=== PATIENT | male | born 1960 | race African-American/Black ===

== ENCOUNTER 2017-10-15 05:46 | Day surgery (SDC) | payer BC ==
--- NOTE | 2017-10-14 21:45 | Pre-op HX & Phy Repo 2 SIG ---
DATE OF ADMISSION: 10/15/2017 DATE OF SURGERY: 10/15/2017. PREOPERATIVE DIAGNOSES: 1. Recurrent vitreous hemorrhage, right eye. 2. Severe proliferative retinopathy, left eye with macular edema. BRIEF NOTE: This is a first [facility] admission for this patient. He is a very nice 57-year-old gentleman with a longstanding diabetic retinopathy. He underwent previous vitrectomy surgery and prior injections in the right eye. He had reasonable vision, but has developed recurrent vitreous hemorrhage on that side, which is affecting his ability to function and do his work properly. He has had prior intravitreal injections on the left eye, but no surgery. On examination in our office, he was found to have a dense vitreous hemorrhage without an apparent retinal detachment on the right and severe proliferative diabetic retinopathy with widespread perfusion loss on the left. He is admitted for a vitrectomy with washout and endolaser on the right and a primary Avastin injection on the left. PAST MEDICAL HISTORY: Remarkable for diabetes for at least 20 years as well as hypertension and prostate issues. He is a nonsmoker. MEDICATIONS: He is on multiple medications for his diabetes including insulin and oral drugs as well as antihypertensives. PHYSICAL EXAMINATION: Best vision at the time of admission was light perception with projection on the right eye and 20/20- in the left with pressures of 13 and 14. The anterior segment on the right showed a posterior chamber lens well positioned. There were red blood cells in the anterior chamber, but no visible rubeosis. The left anterior segment showed a similar posterior chamber lens and the remainder of the anterior segment was clear. Fundus on the right eye could not be seen secondary to a dense vitreous hemorrhage. On the left, there was optic disc neovascularization, subhyaloid hemorrhaging, and macular edema as well as a mild vitreous hemorrhage down below. General physical examination will be done by Dr. Jara. ASSESSMENT: 1. Dense recurrent vitreous hemorrhage, right eye. 2. Proliferative retinopathy, left eye with mild hemorrhage. PLAN: The plan is to perform a pars plana vitrectomy with washout, additional endolaser, and Avastin if needed. On the left eye, a primary Avastin injection will be done while the patient is in the operating room. The risks and benefits of surgery gone over with the patient including potential infection, hemorrhage, glaucoma, and the remote possibility of loss of the eye. The risk of anesthesia was discussed. The patient understands and consents to the surgery, which will be performed on tomorrow morning. Henry Gant M.D. DR: Ricardo JOB#: [id number] CC: OSIRIS
[~2017-10-15] VITALS: Ht 180.3 cm; Wt 77.1 kg
[2017-10-15] VITALS (11 sets, daily range): BP systolic 164–181; BP diastolic 89–99
[~2017-10-15 05:46] MED LIST: Cyclopentolate 1% Opth Sol 2ml ONE; Flurbiprofen 0.03% Opth Sol 2.5ml ONE; Phenylephrine 2.5% Op 2ml Soln ONE; Vigamox Opth Soln 3ml ONE
[2017-10-15] MEDS ORDERED: Pred Forte 1% Opth Susp 1ml RIGHT EYE SCH (06:00)
[2017-10-15] MEDS ORDERED: Tetracaine 0.5% Opth 4ml Soln ONE (06:03)
[2017-10-15] MEDS ORDERED: Kenalog-40 1ml Vial ONE (06:03)
[2017-10-15] MEDS ORDERED: BSS 500ml btl ONE (06:03)
[2017-10-15] MEDS ORDERED: Maxitrol Opth Oint 3.5gm ONE (06:03)
[2017-10-15] MEDS ORDERED: Dexamethasone 4mg/ml vial ONE (06:03)
--- NOTE | 2017-10-15 06:03 | Pre-Procedure Note/Attestation ---
Pre-Procedure Note/Attestation Complete Prior to Procedure Planned Procedure: bilateral Procedure Narrative: 1.) Pars plana vitrectomy, membrane peel, endolaser, Avastin injection Right eye: 2.) Avastin injection Left eye Indications for Procedure Pre-Operative Diagnosis: 1) Recurrent vitreous hemorrhage with possible traction Right eye 2) Severe proliferative diabetic retinopathy with vitreous heme and diabetic macular edema Left eye Attestation I attest that I discussed the nature of the procedure; its benefits; risks and complications; and alternatives (and the risks and benefits of such alternatives ), prior to the procedure, with the patient (or the patient's legal employment program representative). I attest that, if there was a reasonable possibility of needing a blood transfusion, the patient (or the patient's legal employment program representative) was given the [facility] standardized written summary, pursuant to the [place] Blood Safety Act ([place] Health and Safety Code # 1645, as amended). I attest that I re-evaluated the patient just prior to the surgery and that there has been no change in the patient's H&P, except as documented below: BEVERLY HERNANDEZ Oct 15, 2017 06:03
[2017-10-15] MEDS ORDERED: Kenalog-10 5ml Inj ONE (06:04)
[2017-10-15] MEDS ORDERED: Bupivacaine 0.75% 30ml vial INJ ONE (06:05)
[2017-10-15] MEDS ORDERED: BSS 15ml BTL ONE (06:05)
[2017-10-15] MEDS ORDERED: Lidocaine 2% MPF 5ml Vial INJ ONE (06:05)
[2017-10-15] MEDS ORDERED: Povidone-Iodine 5% opth solution ONE (06:05)
[2017-10-15] MEDS ORDERED: EPINEPHrine 1mg/1ml Amp ONE (06:05)
[2017-10-15] MEDS ORDERED: Sodium Hyaluronate 10 mg/ml 0.85ml ONE (06:06)
[2017-10-15] MEDS: Cyclopentolate 1% Opth Sol 2ml RIGHT EYE SCH ×3 (06:39→07:01)
[2017-10-15] MEDS: Flurbiprofen 0.03% Opth Sol 2.5ml RIGHT EYE SCH ×3 (06:40→07:01)
[2017-10-15] MEDS: Phenylephrine 2.5% Op 2ml Soln RIGHT EYE SCH ×3 (06:40→07:01)
[2017-10-15] MEDS: Vigamox Opth Soln 3ml RIGHT EYE SCH ×3 (06:40→07:01)
--- NOTE | 2017-10-15 06:56 | Immediate Post-Op Evaluation ---
Immediate Post-Op Evalulation Immediate Post-Op Evalulation Procedure: R eye vitrectomy membrane peeling endolaser, Avastin inj, L eye Avastin inj Date of Evaluation: Oct 15, 2017 Time of Evaluation: 08:25 IV Fluids: LR Blood Products: 0 Estimated Blood Loss: <3 ml Urinary Output: no magaña Blood Pressure Systolic: 173 Blood Pressure Diastolic: 99 Pulse Rate: 79 Respiratory Rate: 18 O2 Sat by Pulse Oximetry: 100 Temperature (Fahrenheit): 98.4 Pain Score (1-10): 0 Nausea: No Vomiting: No Complications none Patient Status: awake, reacts, patent Hydration Status: adequate Given Within 1 Hr of Incision: Sharonda Candelario CRNA Oct 15, 2017 06:56
--- NOTE | 2017-10-15 06:57 | 48 Hour Post Anesthesia Eval ---
Post Anesthesia Evaluation Procedure: R eye vitrectomy & Avastin inj, L eye Avastin inj Date of Evaluation: Oct 15, 2017 Time of Evaluation: 08:40 Blood Pressure Systolic: 170 0: 95 Pulse Rate: 75 Respiratory Rate: 18 Temperature (Fahrenheit): 98.4 O2 Sat by Pulse Oximetry: 100 Airway: patent Nausea: No Vomiting: No Pain Intensity: 0 Hydration Status: adequate Mental Status/LOC: patient returned to baseline Post-Anesthesia Complications: none Follow-up care needed: patient intructions given Sharonda Groves CRNA Oct 15, 2017 06:57
[2017-10-15] MEDS ORDERED: NS Irrig 1000ml ONE (07:00)
[2017-10-15] MEDS ORDERED: Esmolol 100mg/10ml Inj ONE (07:00)
[2017-10-15] MEDS ORDERED: fentaNYL 100 mcg/2 mL IV ONE (07:00)
[2017-10-15] MEDS ORDERED: Sterile Water Irrig 1000ml IRRIG ONE (07:00)
[2017-10-15] MEDS ORDERED: Midazolam 2mg/2ml Inj ONE (07:00)
[2017-10-15] MEDS ORDERED: Propofol 200mg/20ml IV ONE (07:00)
[2017-10-15] MEDS ORDERED: LR 1000ml ONE (07:00)
[2017-10-15] MEDS ORDERED: Labetalol 5mg/ml 20ml vial IV ONE (07:00)
--- NOTE | 2017-10-15 07:01 | Anethesia Preoperative Eval ---
Anesthesia Pre-op PMH/ROS General Date of Evaluation: Oct 15, 2017 Time of Evaluation: 07:15 Anesthesiologist: Germain ASA Score: ASA 3 Mallampati Score Class I : Soft palate, uvula, fauces, pillars visible Class II: Soft palate, uvula, fauces visible Class III: Soft palate, base of uvula visible Class IV: Only hard plate visible Mallampati Classification: Class II Surgeon: Stalin Diagnosis: right eye vitreous hemorrhage Surgical Procedure: Right eye Anesthesia History: none Family History: no anesthesia problems Allergies: Coded Allergies: No Known Allergies (Unverified , 10/13/17) Medications: see eMAR Past Medical History Cardiovascular: Reports: HTN Pulmonary: Denies: asthma, COPD, OVI, other Gastrointestinal/Genitourinary: Reports: other - prostate problem Neurologic/Psychiatric: Denies: dementia, CVA, depression/anxiety, TIA, other Endocrine: Reports: DM HEENT: Reports: cataract (R), other - diabetic retinopathy Hematology/Immune: Denies: anemia, DVT, bleeding disorder, other Musculoskeletal/Integumentary: Denies: OA, RA, DJD, DDD, edema, other Anesthesia Pre-op Phys. Exam Physician Exam Constitutional: NAD Neurologic: CN 2-12 intact Cardiovascular: RRR Respiratory: CTA Gastrointestinal: S/NT/ND Airway Exam Mallampati Score: Class II MO: full ROM: full Teeth: intact Anesthesia Pre-op A/P Labs chart reviewed Accucheck 102 in preop area Studies Pre-op Studies: EKG - nsr 72 bpm Risk Assessment & Plan Assessment: A&O X3 Plan: MAC Status Change Before Surgery: No Pre-Antibiotics Given Within 1 Hr of Incision: No - none per surgeon Sharonda Groves WOOD STAINER Oct 15, 2017 07:01
[2017-10-15] MEDS ORDERED: LANTUS SOL100 UNIT/1 SUBQ (07:16)
[2017-10-15] MEDS ORDERED: LISINOPRIL-HCT1 EACH ORAL (07:16)
[2017-10-15] MEDS ORDERED: PROSTATE PILL PO (07:16)
[2017-10-15 07:19] LABS: BASOPHILS % (AUTO) 1.9 % (0.0-2.0); EOSINOPHILS % (AUTO) 1.6 % (0.0-3.0); LYMPHOCYTES % (AUTO) 25.5 % (20.0-45.0); MEAN CORPUSCULAR HEMOGLOBIN 31.8 PG (27.0-31.0); MEAN CORPUSCULAR HGB CONC 34.2 G/DL (32.0-36.0); MEAN CORPUSCULAR VOLUME 93 FL (80-99); MEAN PLATELET VOLUME 8.9 FL (6.5-10.1); MONOCYTES % (AUTO) 11.4 % (1.0-10.0); NEUTROPHILS % (AUTO) 59.6 % (45.0-75.0); PLATELET COUNT 154 K/UL (150-450); RED BLOOD COUNT 4.63 M/UL (4.70-6.10); WHITE BLOOD COUNT 4.7 K/UL (4.8-10.8)
[2017-10-15] MEDS ORDERED: Akten 3.5% 1ml Btl ONE (07:21)
[2017-10-15 07:22] LABS: ANION GAP 8 mmol/L (5-15); CARBON DIOXIDE 26 MMOL/L (21-32); CHLORIDE 105 MMOL/L (98-107); CREATININE 1.1 MG/DL (0.55-1.30); GLOMERULAR FILTRATION RATE > 60 mL/min (>60); POTASSIUM 4.8 MMOL/L (3.5-5.1); SODIUM 139 MMOL/L (136-145)
[2017-10-15] MEDS ORDERED: Avastin 10mg Inj IVITRE ONE ×3 (07:30)
[2017-10-15] MEDS ORDERED: fentaNYL 100 mcg/2 mL IV PRN (08:15)
[2017-10-15] MEDS ORDERED: Hydromorphone 0.5mg/0.5ml inj IVP PRN (08:15)
--- NOTE | 2017-10-15 08:32 | Brief Operative Note ---
Immediate Post Operative Note Operative Note Chief Complaint: Blurred vision Right Eye, Floaters L eye Pre-op Diagnosis: 1) Recurrent vitreous hemorrhage with possible traction Right eye 2) Severe proliferative diabetic retinopathy with vitreous heme and diabetic macular edema Left eye Procedure: 1) PPV, membrane peel, Kenalog injection, Endolaser 834 spots Right eye 2) Avastin injection (1.25 mg ) Left eye Post-op Diagnosis: same as pre-op Surgeon: Stalin Anesthesiologist: juan Groves Anesthesia: MAC Specimen: none Complications: none Condition: stable Fluids: none Estimated Blood Loss: none Drains: none Implant(s) used?: No BEVERLY HERNANDEZ Oct 15, 2017 08:32
--- NOTE | 2017-10-15 15:15 | Operative Note - Dictated ---
DATE OF OPERATION: 10/15/2017 PREOPERATIVE DIAGNOSES: 1. Recurrent dense vitreous hemorrhage, right eye. 2. Proliferative retinopathy with vitreous hemorrhage and diabetic macular edema, left eye. PROCEDURES PERFORMED: 1. Right eye pars plana vitrectomy and left eye injection of intravitreal Avastin 1.25 mg. 2. Kenalog injection. 3. Membrane peel. 4. Endolaser. JUSTIFICATION FOR SURGERY: This 57-year-old gentleman with a long history of diabetes and undergone a prior vit[place] in [place] He developed a dense recurrent vitreous hemorrhage that hampered his day-to-day existence. He was also noted to have a very severe proliferative retinopathy with vitreous hemorrhaging and diabetic edema in the left eye that was in need of additional therapy. SURGEON: Henry Gant M.D. MANUFACTURING PROCESS ENGINEER: None. ANESTHESIA: Local sedation. ANESTHESIOLOGIST: KODY Groves. BRIEF NOTE: The patient was brought to the operating room, placed on OR table in supine position. After a time-out was agreed upon by the staff, an initial sedation and monitoring secured by nurse Groves. Retrobulbar and Van Lint blocks were given in the right eye. The left eye was treated with topical TetraVisc and Betadine for sterility and Avastin, 1.25 mg was injected superotemporally 4 mm from the limbus. Topical moxifloxacin drops were instilled and the needle site was massaged through the closed lid. No problems were encountered. The patient was then prepped and draped in normal manner. A lid speculum was inserted into the right eye. Using a 23-gauge trocar system, cannulas were placed in all except the infranasal quadrant. Infusion secured inferotemporally. Vitrectomy was begun posterior to the lens implant removing adhesions and adherent blood. The vitrectomy was carried further posteriorly with gentle central suction until the posterior structures could be seen. A significant amount of peripheral vitreous remained in the eye with the most prominent site inferior and nasal to the optic nerve where there was an area of surface neovascularization with vitreous adhesions. This appeared to be the source of the blood. The vitrectomy was done with gentle elevation of membranes at this site inferonasally and cutting down to the surface of the retina. Vitrectomy was continued further peripherally removing hydrated vitreous and leaving a much smaller vitreous skirt. Scleral depression was done. No peripheral breaks, tears, or detachments were seen, but the retina was noted to be somewhat lightly treated. The area of the neovascularization inferonasal to the nerve was suctioned clear of blood and the endolaser was used to cauterize the remaining small bleeders and do laser surrounding the site. Additional laser was done in the periphery and lightly treated areas with a total of 434 shots being applied. With the pressure lowered, there was noted to be no sites of active hemorrhage. Kenalog had been used to aid in visualization of the peripheral vitreous and this was gently suctioned and removed from the eye. The superior infusion cannulas were removed and these wounds were closed with a single suture of 8-0 Vicryl and using a surgeon's knot. The eye was reinflated and the infusion line was removed and this sclerotomy similarly closed with the same suture. Subconjunctival Decadron and gentamicin were then injected and Maxitrol and atropine ointments were instilled. The eye was patched and shielded. The patient was taken to recovery in excellent condition. There were no complications. Henry Gant M.D. DR: Evaristo JOB#: [id number] CC: Henry Gant M.D.; Fax#: [phone] [facility]
--- NOTE | 2017-10-19 15:49 | Cardiology Report ---
APPROVED REPORT EKG Measurement Heart [id number] OR [id number] Normal sinus rhythm T wave abnormality, consider inferior ischemia T wave abnormality, consider anterolateral ischemia Abnormal ECG
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
== END 2017-10-15 11:00 | disposition home or self-care (01) ==
LOC: SUR 05:46
DX: H43.11 Vitreous hemorrhage, right eye (principal); H43.12 Vitreous hemorrhage, left eye; E10.3512 Type 1 diabetes mellitus with proliferative diabetic retinopathy with macular edema, left eye; I10 Essential (primary) hypertension; Z79.4 Long term (current) use of insulin
CPT/HCPCS: 36415; 67039; 80048; 82962; 85025; 93005; J0171; J0360; J1100; J2250; J2704; J3010; J3301; J3490; J7120; J9035; 94003; 94150